=== PATIENT | male | born 1960 | race Caucasian/White ===

== ENCOUNTER 2019-06-01 06:00 | Emergency (ER) | payer OTHER ==
[~2019-06-01] VITALS: Ht 180.3 cm; Wt 103.4 kg
[~2019-06-01 06:00] MED LIST: Amlodipine Besylate PO; CAFFEINE PO; CPR500T PO; GLYC2TAB PO; HYDR-690 PO; HYDR1CAP2; Lisinopril PO; METR500T PO; OXYC-12 PO; PRM25T PO; TMSL.4C PO; [UNRECOGNIZED DRUG - OTHER]
[2019-06-01 06:33] LABS: BASOPHILS % (AUTO) 0 % (0-10); EOSINOPHILS # (AUTO) 0.1 10^3/uL (0.0-0.3); EOSINOPHILS % (AUTO) 1 % (0-10); HEMATOCRIT 48 % (40-54); HEMOGLOBIN 16.8 G/DL (13.3-17.7); LYMPHOCYTES % (AUTO) 11 % (12-44); MEAN CORPUSCULAR HEMOGLOBIN 32 PG (25-34); MEAN CORPUSCULAR HGB CONC 35 G/DL (32-36); MEAN CORPUSCULAR VOLUME 91 FL (80-99); MEAN PLATELET VOLUME 10.9 FL (7.4-10.4); MONOCYTES # (AUTO) 0.7 X 10^3 (0.0-1.0); MONOCYTES % (AUTO) 7 % (0-12); NEUTROPHILS # (AUTO) 7.8 X 10^3 (1.8-7.8); NEUTROPHILS % (AUTO) 81 % (42-75); PLATELET COUNT 200 10^3/uL (130-400); RED CELL DISTRIBUTION WIDTH 12.4 % (10.0-14.5); WHITE BLOOD COUNT 9.7 10^3/uL (4.3-11.0)
[2019-06-01 06:44] LABS: INR 0.9 (0.8-1.4); PROTHROMBIN TIME PATIENT 12.8 SEC (12.2-14.7)
[2019-06-01 06:51] LABS: ALANINE AMINOTRANSFERASE 35 U/L (0-55); ALBUMIN 4.3 GM/DL (3.2-4.5); ALKALINE PHOSPHATASE 61 U/L (40-136); BILIRUBIN,TOTAL 0.4 MG/DL (0.1-1.0); BUN/CREATININE RATIO 27; CALCIUM 9.4 MG/DL (8.5-10.1); CARBON DIOXIDE 23 MMOL/L (21-32); CHLORIDE 103 MMOL/L (98-107); CREATININE SERUM 1.18 MG/DL (0.60-1.30); GFR ESTIMATED > 60; GLUCOSE 88 MG/DL (70-105); POTASSIUM 3.9 MMOL/L (3.6-5.0); SODIUM 139 MMOL/L (135-145); TOTAL PROTEIN 6.7 GM/DL (6.4-8.2)
--- NOTE | 2019-06-01 07:37 | ED EENT ---
History of Present Illness General Chief Complaint: Nasal Problems Stated Complaint: NOSE BLEED Nursing Triage Note: C/O NOSE BLEED SINCE YESTERDAY MORNING. STATES HAS HAD AN ONGING "COLD" WITH CONGESTION SINCE LAST WEEK. Source: patient Exam Limitations: no limitations History of Present Illness Date Seen by Provider: Jun 01, 2019 Time Seen by Provider: 06:01 Initial Comments This 58-year-old gentleman presents to the emergency room with complaint of right-sided epistaxis since yesterday morning. He has had congestion and upper respiratory symptoms recently. He has been taking guaifenesin, dextromethorphan, and diphenhydramine. He is notably hypertensive and takes lisinopril/hydrochlorothiazide 20/12.5. He did take it this morning. Patient has history of lymphoma and takes Rituxan. Allergies and Home Medications Allergies Coded Allergies: No Known Drug Allergies (Unverified , 04/30/14) Home Medications Hydrocodone Bit/Ibuprofen 1 Tab Tablet, 1 TAB PO TID PRN for PAIN, (Reported) [Amlodipine Besylate] 5 MG TAB, 5 MG PO DAILY Prescribed by: ANGEL MENEZES on 05/02/141940 [Lisinopril] 10 MG TAB, 10 MG PO DAILY Prescribed by: ANGEL MENEZES on 05/02/141940 Patient Home Medication List Home Medication List Reviewed: Yes Review of Systems Review of Systems Constitutional: no symptoms reported Eyes: No Symptoms Reported Ears: No Symptoms Reported Nose: see HPI Mouth: no symptoms reported Throat: no symptoms reported Respiratory: no symptoms reported Cardiovascular: see HPI Gastrointestinal: no symptoms reported Musculoskeletal: no symptoms reported Skin: no symptoms reported Neurological: No Symptoms Reported Hematologic/Lymphatic: See HPI Immunological/Allergic: no symptoms reported Past Budflyt-Kpiugc-Ocspdk Hx Past Med/Social Hx: Reviewed Nursing Past Med/Soc Hx Patient Social History Alcohol Use: Denies Use Recreational Drug Use: No 2nd Hand Smoke Exposure: No Recent Foreign Travel: No Contact w/Someone Who Travel: No Recent Infectious Disease Expo: No Recent Hopitalizations: Yes (KIDNEY STONES ONLY) Physical Abuse: No Sexual Abuse: No Mistreated: No Fear: No Immunizations Up To Date Date of Influenza Vaccine: Mar 16, 2019 Past Medical History Surgeries: Yes (HEMORRHOID REMOVAL ) Respiratory: Yes ("MILD" SLEEP APNEA) Sleep Apnea Cardiac: Yes Hypertension Neurological: Yes (HEADACHES) Reproductive Disorders: No Genitourinary: Yes Kidney Stones Gastrointestinal: No Musculoskeletal: Yes (SHOULDER PAIN) Arthritis Endocrine: No Hearing Impairment: Denies Cancer: Yes Lymphoma Psychosocial: No Integumentary: No Blood Disorders: No Family Medical History Colon cancer PATERNAL AUNT Completed stroke PATERNAL UNCLE FH: liver cancer PATERNAL AUNT Hypertension 19 FATHER 19 MOTHER Kidney stones 19 MOTHER Kidney stones 19 MOTHER Prostate cancer PATERNAL GRANDFATHER Physical Exam Vital Signs Vital Signs - First Documented 06/01/19 06/01/19 06:10 07:50 Temp 35.6 Pulse 61 Resp 18 B/P (MAP) 160/103 (122) Pulse Ox 96 O2 Delivery Room Air Height, Weight, BMI Height: 5'11.00" Weight: 231lbs. 8.0oz. [id number]; 31.00 BMI Method: General Appearance: WD/WN, no apparent distress Eyes: bilateral eye normal inspection, bilateral eye PERRL, bilateral eye EOMI Ears: bilateral ear auricle normal, bilateral ear canal normal, bilateral ear TM normal Nose: normal inspection, active bleeding (Right nostril) Mouth/Throat: normal mouth inspection, pharynx normal Neck: normal inspection Cardiovascular: regular rate, rhythm, no edema, no murmur Respiratory: lungs clear, normal breath sounds, no respiratory distress Neurologic/Psychiatric: legal assistant II-XII nml as tested, no motor/sensory deficits, alert, normal mood/affect Skin: normal color, warm/dry Progress/Results/Core Measures Results/Orders Lab Results Laboratory Tests Test 06/01/19 06:22 Range/Units White Blood Count 9.7 4.3-11.0 10^3/uL Red Blood Count 5.30 4.35-5.85 10^6/uL Hemoglobin 16.8 13.3-17.7 G/DL Hematocrit 48 40-54 % Mean Corpuscular Volume 91 80-99 FL Mean Corpuscular Hemoglobin 32 25-34 PG Mean Corpuscular Hemoglobin Concent 35 32-36 G/DL Red Cell Distribution Width 12.4 10.0-14.5 % Platelet Count 200 130-400 10^3/uL Mean Platelet Volume 10.9 H 7.4-10.4 FL Neutrophils (%) (Auto) 81 H 42-75 % Lymphocytes (%) (Auto) 11 L 12-44 % Monocytes (%) (Auto) 7 0-12 % Eosinophils (%) (Auto) 1 0-10 % Basophils (%) (Auto) 0 0-10 % Neutrophils # (Auto) 7.8 1.8-7.8 X 10^3 Lymphocytes # (Auto) 1.0 1.0-4.0 X 10^3 Monocytes # (Auto) 0.7 0.0-1.0 X 10^3 Eosinophils # (Auto) 0.1 0.0-0.3 10^3/uL Basophils # (Auto) 0.0 0.0-0.1 10^3/uL Prothrombin Time 12.8 12.2-14.7 SEC INR Comment 0.9 0.8-1.4 Activated Partial Thromboplast Time 28 24-35 SEC Sodium Level 139 135-145 MMOL/L Potassium Level 3.9 3.6-5.0 MMOL/L Chloride Level 103 98-107 MMOL/L Carbon Dioxide Level 23 21-32 MMOL/L Anion Gap 13 5-14 MMOL/L Blood Urea Nitrogen 32 H 7-18 MG/DL Creatinine 1.18 0.60-1.30 MG/DL Estimat Glomerular Filtration Rate > 60 BUN/Creatinine Ratio 27 Glucose Level 88 70-105 MG/DL Calcium Level 9.4 8.5-10.1 MG/DL Corrected Calcium 9.2 8.5-10.1 MG/DL Total Bilirubin 0.4 0.1-1.0 MG/DL Aspartate Amino Transf (AST/SGOT) 22 5-34 U/L Alanine Aminotransferase (ALT/SGPT) 35 0-55 U/L Alkaline Phosphatase 61 40-136 U/L Total Protein 6.7 6.4-8.2 GM/DL Albumin 4.3 3.2-4.5 GM/DL My Orders Orders - LOYD LOBO MD Cbc With Automated Diff (06/01/19 06:23) Comprehensive Metabolic Panel (06/01/19 06:23) Protime With Inr (06/01/19 06:23) Partial Thromboplastin Time (06/01/19 06:23) Ed Iv/Invasive Line Start (06/01/19 06:23) Vital Signs/I&O Blood Pressure Mean: 122 Progress Progress Note : Progress Note Patient took an extra lisinopril/hydrochlorothiazide to help control the blood pressure. There is no significant active bleeding during his ER stay. Labs were obtained due to history of lymphoma to ensure platelet counts and hemoglobin were stable. Labs were unremarkable. Patient was dismissed home and instructed to double his lisinopril to 40 mg and hydrochlorothiazide to 25 mg until follow-up with his provider. See discharge instructions. Departure Impression Primary Impression: Epistaxis Additional Impression: Essential hypertension Disposition: HOME, SELF-CARE Condition: Improved Departure-Patient Inst. Decision time for Depature: 07:40 Referrals: FLORA BANEGAS MD NO,LOCAL PHYSICIAN (PCP) Primary Care Physician Patient Instructions: Nosebleeds (DC) Add. Discharge Instructions: Increase your blood pressure medication by one half tablet daily to help prevent further nosebleeds and more tightly control your blood pressure. Please follow-up with your primary care provider as soon as possible. If you have recurrent nosebleeds, consider referral to an ENT specialist such as Dr. Banegas (see contact information below). Avoid things that can increase your blood pressure such as a high salt diet or stimulants such as caffeine, nicotine, oral decongestant medications, energy drinks, etc. If nose bleed returns, use 2 squirts of Afrin (or generic oxymetazoline) in each nostril and apply direct pressure. If this does not resolve bleeding after about 15 minutes, you may return to care. Use of a humidifier may also reduce risk of nosebleeds. All discharge instructions reviewed with patient and/or family. Voiced unders tanding. LOYD LOBO MD Jun 01, 2019 07:37
[2019-06-01 07:50] VITALS: BP 149/100
== END 2019-06-01 07:50 | disposition home or self-care (01) ==
LOC: EDUNIT# 06:00 → ER 06:02
DX: R04.0 Epistaxis (principal); I10 Essential (primary) hypertension; Z87.442 Personal history of urinary calculi; Z85.72 Personal history of non-Hodgkin lymphomas; Z80.0 Family history of malignant neoplasm of digestive organs; Z82.49 Family history of ischemic heart disease and other diseases of the circulatory system
CPT/HCPCS: 36415; 80053; 85025; 85610; 85730